=== PATIENT | male | born 1980 | race Two or more races ===

== ENCOUNTER 2021-11-18 13:54 | Emergency (ER) | payer OTHER ==
[2021-11-18 14:03] VITALS: BP 105/77; PULSE 84; TEMP 98.3; BMI 26.9
[2021-11-18] MEDS ORDERED: SODIUM CHLORIDE 0.9% 1000 ML INFUS.BAG IV ONE (15:12)
[2021-11-18 15:42] LABS: BASO % 0.8 % (0-2.0); EOS % 3.3 % (0-4.5); HEMATOCRIT 45.9 % (35.4-49); LYMPH % 24.8 % (8-40); MCH 29.1 pg (25.7-33.7); MCHC 34.9 g/dl (32.0-35.9); MEAN CELL VOLUME 83.3 fl (80-96); MEAN PLT VOLUME 8.5 fl (7.5-11.1); MONO % 6.9 % (3.8-10.2); NEUT % 64.2 % (42.8-82.8); PLATELET COUNT 273 10^3/uL (134-434); RBC 5.51 M/mm3 (4.00-5.60); RDW 12.9 % (11.9-15.9); WHITE BLOOD COUNT 9.7 K/mm3 (4.0-10.0)
[2021-11-18 15:50] LABS: INR 0.94 (0.83-1.09); PROTHROMBIN TIME (PATIENT) 10.8 SEC (9.7-13.0)
[2021-11-18 16:15] LABS: CALCIUM 9.6 mg/dL (8.5-10.1)
[2021-11-18 16:16] LABS: ALBUMIN 4.3 g/dl (3.4-5.0); BLOOD UREA NITROGEN 16.9 mg/dL (7-18)
[2021-11-18 16:19] LABS: CREATININE 0.8 mg/dL (0.55-1.3)
[2021-11-18 16:20] LABS: BILIRUBIN,TOTAL 0.6 mg/dL (0.2-1); TOT PROT 7.9 g/dl (6.4-8.2)
== END 2021-11-18 18:06 | disposition home or self-care (01) ==
LOC: JER 13:54
DX: R55 Syncope and collapse (principal)
CPT/HCPCS: 36415; 71046-TC-FY; 80053; 84484; 85025; 85379; 85610; 85730; 93005; 93010; 99285-25; C9803-CS; U0003; U0005

== ENCOUNTER 2022-02-18 14:19 | Emergency (ER) | payer OTHER ==
[2022-02-18 14:35] VITALS: BP 110/70; PULSE 78; RESP 18; TEMP 98; BMI 27.3
[2022-02-18] MEDS ORDERED: ACETAMINOPHEN 1000 MG/100 ML BAG IVPB ONE (15:16)
[2022-02-18] MEDS ORDERED: SODIUM CHLORIDE 0.9% 500 ML INFUS.BAG IV ONE (15:16)
[2022-02-18] MEDS ORDERED: ACETAMINOPHEN INJECTION 100 ML IVPB ONE (16:26)
[2022-02-18 16:52] LABS: BASO % 0.8 % (0-2.0); EOS % 3.3 % (0-4.5); HEMATOCRIT 44.9 % (35.4-49); HEMOGLOBIN 15.1 GM/dL (11.7-16.9); LYMPH % 26.4 % (8-40); MCH 28.4 pg (25.7-33.7); MCHC 33.6 g/dl (32.0-35.9); MEAN CELL VOLUME 84.7 fl (80-96); MEAN PLT VOLUME 9.2 fl (7.5-11.1); MONO % 6.1 % (3.8-10.2); NEUT % 63.4 % (42.8-82.8); PLATELET COUNT 281 10^3/uL (134-434); RDW 12.6 % (11.9-15.9); WHITE BLOOD COUNT 9.8 K/mm3 (4.0-10.0)
[2022-02-18 17:04] LABS: INR 0.97 (0.83-1.09); PROTHROMBIN TIME (PATIENT) 11.2 SEC (9.7-13.0)
[2022-02-18 17:06] LABS: ACTIVATED PTT 31.6 SECONDS (25.2-36.5)
[2022-02-18 17:17] LABS: BLOOD UREA NITROGEN 21.7 mg/dL (7-18); CALCIUM 9.4 mg/dL (8.5-10.1)
[2022-02-18 17:18] LABS: ALBUMIN 3.9 g/dl (3.4-5.0)
[2022-02-18 17:21] LABS: CREATININE 0.9 mg/dL (0.55-1.3)
[2022-02-18 17:22] LABS: BILIRUBIN,TOTAL 0.4 mg/dL (0.2-1); TOT PROT 7.3 g/dl (6.4-8.2)
== END 2022-02-18 18:18 | disposition home or self-care (01) ==
LOC: JER 14:19
PROC: 3E033GC Introduction of Other Therapeutic Substance into Peripheral Vein, Percutaneous Approach (ICD-10-PCS; principal; 2022-02-18)
DX: S80.12XA Contusion of left lower leg, initial encounter (principal); Y99.9 Unspecified external cause status
CPT/HCPCS: 36415; 80053; 85025; 85610; 85730; 87040; 93971-TC; 99284-25

== ENCOUNTER 2022-06-09 12:18 | Emergency (ER) | payer OTHER ==
[2022-06-09 12:41] VITALS: BP 137/80; PULSE 113; RESP 20; TEMP 99.4; BMI 26.6
[2022-06-09] MEDS ORDERED: IBUPROFEN 600 MG TABLET (FP) PO ONE ×2 (14:04→14:31)
[2022-06-09] MEDS ORDERED: ACETAMINOPHEN 500 MG TABLET (FP) PO ONE (14:04)
[2022-06-09] MEDS ORDERED: ACETAMINOPHEN 500 MG TABLET (FP) ONE (14:31)
== END 2022-06-09 16:13 | disposition home or self-care (01) ==
LOC: JER 12:18
DX: U07.1 COVID-19 (principal)
CPT/HCPCS: 0241U-QW; 71046-TC-FY; 87651; 99284-25

== ENCOUNTER 2023-08-09 12:51 | Emergency (ER) | payer OTHER ==
[2023-08-09 13:16] VITALS: BMI 26.6
[2023-08-09] MEDS ORDERED: FAMOTIDINE 20 MG/50 ML IVPB 20 MG/50 ML MG IVPB ONE (13:57)
[2023-08-09] MEDS ORDERED: ACETAMINOPHEN INJECTION 100 ML IVPB ONE (13:57)
[2023-08-09] MEDS ORDERED: MAG HYDROX/AL HYDROX/SIMETH 30 ML UNIT-DOSE CUP ONE (13:57)
[2023-08-09] MEDS: MAG HYDROX/AL HYDROX/SIMETH 30 ML UNIT-DOSE CUP PO ONE (14:06)
[2023-08-09] MEDS: ACETAMINOPHEN 1000 MG/100 ML BAG IVPB ONE (14:20)
[2023-08-09] MEDS: FAMOTIDINE 20 MG/50 ML IVPB 20 MG/50 ML MG IVPB ONE (14:20)
[2023-08-09 14:21] LABS: BASO % 0.6 % (0-2.0); EOS % 2.5 % (0-4.5); HEMATOCRIT 46.4 % (35.4-49); HEMOGLOBIN 15.9 GM/dL (11.7-16.9); LYMPH % 23.6 % (8-40); MCH 28.7 pg (25.7-33.7); MCHC 34.2 g/dl (32.0-35.9); MEAN CELL VOLUME 83.9 fl (80-96); MEAN PLT VOLUME 8.8 fl (7.5-11.1); MONO % 10.2 % (3.8-10.2); NEUT % 63.1 % (42.8-82.8); PLATELET COUNT 264 10^3/uL (134-434); RBC 5.53 M/mm3 (4.00-5.60); RDW 12.5 % (11.9-15.9); WHITE BLOOD COUNT 9.3 K/mm3 (4.0-10.0)
[2023-08-09 14:28] LABS: INR 0.94 (0.83-1.09); PROTHROMBIN TIME (PATIENT) 10.9 SEC (9.7-13.0)
[2023-08-09 15:01] LABS: POTASSIUM 4.5 mmol/L (3.5-5.1)
[2023-08-09 15:03] LABS: CALCIUM 9.1 mg/dL (8.5-10.1)
[2023-08-09 15:04] LABS: ALBUMIN 3.7 g/dl (3.4-5.0); BLOOD UREA NITROGEN 18.6 mg/dL (7-18); MAGNESIUM 2.1 mg/dL (1.8-2.4)
[2023-08-09 15:06] LABS: CREATININE 0.8 mg/dL (0.55-1.3)
[2023-08-09 15:08] LABS: BILIRUBIN,TOTAL 0.6 mg/dL (0.2-1); TOT PROT 7.5 g/dl (6.4-8.2)
[2023-08-09] MEDS: SODIUM CHLORIDE 0.9% 500 ML INFUS.BAG IV ONE (15:22)
[2023-08-09 15:58] VITALS: BP 121/82; PULSE 75; RESP 20; TEMP 98.2
== END 2023-08-09 15:59 | disposition home or self-care (01) ==
LOC: JER 12:51
PROC: 3E033GC Introduction of Other Therapeutic Substance into Peripheral Vein, Percutaneous Approach (ICD-10-PCS; principal; 2023-08-09)
PROC: 3E033NZ Introduction of Analgesics, Hypnotics, Sedatives into Peripheral Vein, Percutaneous Approach (ICD-10-PCS; 2023-08-09)
DX: R10.13 Epigastric pain (principal); R63.0 Anorexia; R73.9 Hyperglycemia, unspecified
CPT/HCPCS: 36415; 71046-TC-FY; 80053; 83690; 83735; 84484; 85025; 85610; 85730; 86850; 86900; 86901; 93005; 93010; 99285-25; J0131